=== PATIENT | female | born 1990 | race Two or more races ===

== ENCOUNTER 2024-09-14 | Outpatient (CLI) | payer OTHER ==
[2024-09-14] VITALS (7 sets, daily range): BP systolic 90–106; BP diastolic 58–73; O2SAT 99
[~2024-09-14] VITALS: Ht 160 cm; Wt 64.9 kg
[2024-09-14] MEDS ORDERED: RINGERS SOLUTION,LACTATED 1,000 ML IV SCH ×2 (00:15→20:15)
[2024-09-14 00:18] LABS: PH,URINE 5.5 (5.0-8.0); URINE APPEARANCE Cloudy; URINE BILIRRUBIN Negative (NEGATIVE); URINE BLOOD Negative; URINE COLOR Yellow; URINE GLUCOSE Negative (NEGATIVE); URINE LEUKOCYTE Small; URINE NITRATE Negative; URINE PROTEIN 30 (NEGATIVE); URINE UROBILINOGEN 0.2 E.U./dl
[2024-09-14 00:21] LABS: URINE BACTERIA 6221.5 uL (0.0-1933); URINE EPITHELIAL CELLS 95.7 uL (0.0-38.8); URINE RBC 16.3 uL (0.0-20.8); URINE WBC 132.4 uL (0.0-23.2)
[2024-09-14 00:28] LABS: HEMATOCRIT 34.5 % (36.0-45.00); MEAN CELL VOLUME 95.5 fL (80.00-100.00); MEAN CORPUSCULAR HGB CONC 33.3 g/dl (32.0-36.0); PLATELET COUNT 317 K/uL (150-450); RED BLOOD COUNT 3.62 M/uL (4.00-6.00); RED CELL DISTRIBUTION WIDTH 13.4 % (11.5-14.5)
[2024-09-14 00:29] LABS: HEMOGLOBIN 11.5 g/dL (12.0-15.00); MEAN CORPUSCULAR HEMOGLOBIN 31.7 pg (27.00-32.0)
[2024-09-14 00:43] LABS: BILIRUBIN TOTAL 0.58 mg/dL (0.3-1.2); GFR 145.44; GLOBULINA 3.6 G/DL (2.4-3.5); POTASSIUM 4.42 mEq/L (3.5-5.1); TOTAL PROTEIN 6.6 gm/dL (6.4-8.2); URINE CAST 0.61 uL (0.0-1.40); URINE KETONE >=160 (NEGATIVE); URINE YEAST MODERATE /hpf
[2024-09-14 00:45] LABS: CREATININE SERUM 0.49 mg/dL (0.55-1.02)
[2024-09-14] MEDS ORDERED: ONDANSETRON HCL 2 MG/ML VIAL IV SCH (01:00)
[2024-09-14] MEDS ORDERED: DEXTROSE 5%-LACTATED RINGERS 1,000 ML IV SCH (07:00)
[2024-09-14] MEDS ORDERED: LOPERAMIDE HCL 2 MG CAPSULE PO ONE (07:00)
[2024-09-14] MEDS ORDERED: LOPERAMIDE HCL 2 MG CAPSULE PO SCH (12:00)
[2024-09-14] MEDS ORDERED: ONDANSETRON HCL 2 MG/ML VIAL IV PRN (16:02)
[2024-09-14] MEDS ORDERED: LOPERAMIDE HCL 2 MG CAPSULE PO PRN (16:02)
[2024-09-15 03:00] VITALS: BP 92/60
[2024-09-15 06:11] VITALS: BP 91/65; O2SAT 97
== END 2024-09-15 09:57 | disposition home or self-care (01) ==
LOC: OBS/DEL → LDR → OBS/DEL 09-15 09:57 → LDR 09-15 09:57 → EDSTATUS 09-29 16:15
PROVIDERS: ATTEND Obstetrics & Gynecology Maternal & Fetal Medicine
DX: O21.8 Other vomiting complicating pregnancy (principal); Z3A.30 30 weeks gestation of pregnancy

== ENCOUNTER 2024-11-14 10:28 | Inpatient (IN) | payer OTHER ==
[~2024-11-14] VITALS: Ht 160 cm; Wt 70.8 kg
[2024-11-14 10:50] VITALS: BP 106/69
[2024-11-14 11:48] LABS: HEMATOCRIT 33.3 % (36.0-45.00); HEMOGLOBIN 11.5 g/dL (12.0-15.00); MEAN CORPUSCULAR HEMOGLOBIN 32.5 pg (27.00-32.0); MEAN CORPUSCULAR HGB CONC 34.5 g/dl (32.0-36.0); PLATELET COUNT 338 K/uL (150-450); RED BLOOD COUNT 3.54 M/uL (4.00-6.00); RED CELL DISTRIBUTION WIDTH 13.8 % (11.5-14.5)
[2024-11-14 11:59] LABS: URINE APPEARANCE Clear; URINE BILIRRUBIN Negative (NEGATIVE); URINE BLOOD Negative; URINE COLOR Yellow; URINE GLUCOSE Negative (NEGATIVE); URINE KETONE Trace (NEGATIVE); URINE LEUKOCYTE Small; URINE NITRATE Negative; URINE PROTEIN Negative (NEGATIVE)
[2024-11-14 12:00] LABS: INR < 0.93; PARTIAL THROMBOPLASTIN TIME 25.4 SECONDS (22.0-34.0); PROTHROMBIN TIME 9.9 SECONDS (9.0-11.5)
[2024-11-14 12:02] LABS: URINE BACTERIA 1023.2 uL (0.0-1933); URINE EPITHELIAL CELLS 21.5 uL (0.0-38.8); URINE RBC 4.8 uL (0.0-20.8)
[2024-11-14 12:16] LABS: URINE CAST 0.14 uL (0.0-1.40)
[2024-11-14] MEDS ORDERED: PRENATAL PLUS1 EAC2 PO (12:16)
[2024-11-14 12:17] VITALS: BP 106/69
[2024-11-14] MEDS ORDERED: MORPHINE SULFATE 4 MG/ML VIAL IV PRN (12:45)
[2024-11-14] MEDS ORDERED: RINGERS SOLUTION,LACTATED 1,000 ML IV SCH (12:45)
[2024-11-14 12:48] LABS: ALBUMIN 3.1 gm/dL (3.4-5.0); BILIRUBIN TOTAL 0.42 mg/dL (0.3-1.2); CALCIUM 8.9 mg/dL (8.5-10.1); CREATININE SERUM 0.48 mg/dL (0.55-1.02); GFR 148.94; GLOBULINA 3.8 G/DL (2.4-3.5); POTASSIUM 4.23 mEq/L (3.5-5.1); TOTAL PROTEIN 6.9 gm/dL (6.4-8.2)
[2024-11-14 15:10] VITALS: BP 108/67
[2024-11-14] MEDS ORDERED: MISOPROSTOL 25 MCG TABLET ONE (17:23)
[2024-11-14] MEDS ORDERED: MISOPROSTOL 25 MCG TABLET VAG ONE (18:15)
[2024-11-14 20:06] VITALS: BP 110/73
[2024-11-14 23:35] VITALS: BP 114/73
[2024-11-15 02:35] VITALS: BP 112/66
[2024-11-15] MEDS ORDERED: OXYTOCIN 500 ML IV ONE (07:00)
[2024-11-15] MEDS ORDERED: OXYTOCIN 20 UNITS/500ML RL PIGGYBAG IV ONE (07:09)
[2024-11-15 07:30] VITALS: BP 121/80
[2024-11-15 11:28] VITALS: BP 123/80
[2024-11-15 15:26] VITALS: BP 125/80
[2024-11-15 18:28] VITALS: BP 126/73
[2024-11-15] MEDS ORDERED: MORPHINE SULFATE 4 MG/ML VIAL IV STA (19:13)
[2024-11-15] MEDS ORDERED: CEFOXITIN SODIUM 2,000 MG VIAL IV ONE (21:52)
[2024-11-15] MEDS ORDERED: CEFOXITIN SODIUM 2,000 MG VIAL IV STA (22:01)
[2024-11-15] MEDS ORDERED: CITRIC ACID/SODIUM CITRATE 30 ML BLIST.PACK PO STA (22:01)
[2024-11-15] MEDS ORDERED: OXYTOCIN 10 UNITS/ML VIAL ONE (22:12)
[2024-11-15] MEDS ORDERED: ERYTHROMYCIN BASE OPHT 1GM EACH TUBE OP ONE (22:13)
[2024-11-16] MEDS ORDERED: MORPHINE SULFATE 4 MG/ML VIAL IV ONE ×2 (01:45→03:00)
[2024-11-16] MEDS ORDERED: OXYTOCIN 10 UNITS/ML VIAL ONE (03:00)
[2024-11-16] MEDS ORDERED: KETOROLAC TROMETHAMINE 30 MG VIAL IM ONE (03:15)
[2024-11-16 03:44] VITALS: BP 114/72
[2024-11-16 06:42] LABS: HEMATOCRIT 30.4 % (36.0-45.00); HEMOGLOBIN 10.7 g/dL (12.0-15.00); MEAN CELL VOLUME 93.6 fL (80.00-100.00); MEAN CORPUSCULAR HGB CONC 35.2 g/dl (32.0-36.0); PLATELET COUNT 337 K/uL (150-450); RED BLOOD COUNT 3.25 M/uL (4.00-6.00); RED CELL DISTRIBUTION WIDTH 13.6 % (11.5-14.5)
[2024-11-16] MEDS ORDERED: CEFAZOLIN SODIUM 1,000 MG VIAL IV ONE (06:45)
[2024-11-16 08:00] VITALS: BP 116/66
[2024-11-16] MEDS ORDERED: KETOROLAC TROMETHAMINE 10 MG TABLET PO SCH (08:00)
[2024-11-16] MEDS ORDERED: SIMETHICONE 125 MG CAPSULE PO SCH (09:00)
[2024-11-16] MEDS ORDERED: MEPERIDINE HCL/PF 50 MG/ML VIAL IM PRN (09:00)
[2024-11-16] MEDS ORDERED: PROMETHAZINE HCL 25 MG/ML AMPUL IM PRN (09:00)
[2024-11-16] MEDS ORDERED: OxyCODONE HCL/APAP UD (PERCOCET) PO SCH (09:00)
[2024-11-16 16:03] VITALS: BP 105/70
[2024-11-17 00:55] VITALS: BP 121/72
[2024-11-17 06:36] LABS: HEMATOCRIT 28.2 % (36.0-45.00); HEMOGLOBIN 9.7 g/dL (12.0-15.00); MEAN CORPUSCULAR HEMOGLOBIN 32.5 pg (27.00-32.0); MEAN CORPUSCULAR HGB CONC 34.2 g/dl (32.0-36.0); PLATELET COUNT 319 K/uL (150-450); RED BLOOD COUNT 2.97 M/uL (4.00-6.00); RED CELL DISTRIBUTION WIDTH 13.5 % (11.5-14.5)
[2024-11-17 08:49] VITALS: BP 111/69
[2024-11-17 16:25] VITALS: BP 110/74
[2024-11-18 01:11] VITALS: BP 108/72
[2024-11-18 08:32] VITALS: BP 111/72
== END 2024-11-18 14:03 | disposition home or self-care (01) | DRG 788 ==
LOC: LDR 10:28 → OB/GYN 11-15 23:01
PROVIDERS: Obstetrics & Gynecology Maternal & Fetal Medicine; ADMIT Obstetrics & Gynecology Gynecology; ATTEND Obstetrics & Gynecology Gynecology
PROC: 3E0P7VZ Introduction of Hormone into Female Reproductive, Via Natural or Artificial Opening (ICD-10-PCS; 2024-11-14)
PROC: 4A1HXCZ Monitoring of Products of Conception, Cardiac Rate, External Approach (ICD-10-PCS; 2024-11-14)
PROC: 3E033VJ Introduction of Other Hormone into Peripheral Vein, Percutaneous Approach (ICD-10-PCS; 2024-11-15)
PROC: 10D00Z1 Extraction of Products of Conception, Low, Open Approach (ICD-10-PCS; principal; 2024-11-15 22:15)
DX: O33.8 Maternal care for disproportion of other origin (principal); Z3A.38 38 weeks gestation of pregnancy; Z37.0 Single live birth; Z20.822 Contact with and (suspected) exposure to COVID-19